=== PATIENT | female | born 1980 | race African-American/Black ===

== ENCOUNTER 2021-08-29 12:08 | Emergency (ER) | payer OTHER ==
[~2021-08-29] VITALS: Ht 157.5 cm; Wt 113.2 kg
[2021-08-29 13:41] VITALS: BP 142/80
[2021-08-29] MEDS ORDERED: NAPROXEN 250 MG TABLET PO ONE (13:45)
== END 2021-08-29 14:14 | disposition home or self-care (01) ==
LOC: EMS 12:12
DX: M54.2 Cervicalgia (principal); M54.9 Dorsalgia, unspecified; Z88.6 Allergy status to analgesic agent; V43.92XA Unspecified car occupant injured in collision with other type car in traffic accident, initial encounter; Y93.89 Activity, other specified; Y92.89 Other specified places as the place of occurrence of the external cause; Y99.8 Other external cause status
CPT/HCPCS: 99282; 99283

== ENCOUNTER 2021-09-13 13:07 | Emergency (ER) | payer OTHER ==
[~2021-09-13] VITALS: Ht 165.1 cm; Wt 95.5 kg
[2021-09-13] MEDS ORDERED: METHOCARBAMOL 500 MG TABLET PO ONE (14:30)
[2021-09-13] MEDS ORDERED: KETOROLAC TROMETHAMINE 10 MG TABLET PO ONE (14:30)
[2021-09-13 15:31] VITALS: BP 145/99
== END 2021-09-13 16:07 | disposition home or self-care (01) ==
LOC: EMS 13:13
DX: S46.911A Strain of unspecified muscle, fascia and tendon at shoulder and upper arm level, right arm, initial encounter (principal); S80.02XA Contusion of left knee, initial encounter; V49.49XA Driver injured in collision with other motor vehicles in traffic accident, initial encounter; Y93.89 Activity, other specified; Y92.89 Other specified places as the place of occurrence of the external cause; Y99.8 Other external cause status
CPT/HCPCS: 99283